=== PATIENT | male | born 1985 | race Caucasian/White ===

== ENCOUNTER 2019-11-24 13:58 | Emergency (ER) | payer SELFPAY ==
--- NOTE | 2019-11-24 14:20 | ER Document Report ---
ED Medical Screen (RME) - General Chief Complaint: Head Injury Stated Complaint: LACERATION TO HEAD Time Seen by Provider: 11/24/19 14:12 Mode of Arrival: Ambulatory Information source: Patient Notes: 34 male presents to ED for complaint of head neck pain. He states he was in the attic helping someone else when he hit his head on the beam in the attic completely knocked himself unconscious for 3 minutes. He states he does not have nausea but he has dizziness tiredness and fatigue. He had his friend bring him to the hospital. He is alert and oriented at this time. We will get him checked out with a CT and have him followed up with another provider. She refused a cervical collar. I have greeted and performed a rapid initial assessment of this patient. A comprehensive ED assessment and evaluation of the patient, analysis of test results and completion of medical decision making process will be conducted by an additional ED providers. - Related Data Allergies/Adverse Reactions: No Known Allergies Allergy (Unverified 11/24/19 14:14) Physical Exam - Vital signs Vitals: Temp Pulse Resp BP Pulse Ox 98.8 F 87 16 128/73 H 97 11/24/19 14:03 11/24/19 14:03 11/24/19 14:03 11/24/19 14:03 11/24/19 14:03 Course - Vital Signs Vital signs: Temp Pulse Resp BP Pulse Ox 98.8 F 87 16 128/73 H 97 11/24/19 14:03 11/24/19 14:03 11/24/19 14:03 11/24/19 14:03 11/24/19 14:03
--- NOTE | 2019-11-24 14:48 | RADIOLOGY REPORT (SQ) ---
EXAM DESCRIPTION: CT HEAD WITHOUT COMPLETED DATE/TIME: 11/24/2019 2:33 pm REASON FOR STUDY: Head injury with loss of consciousness neck pain COMPARISON: None. TECHNIQUE: Axial images acquired through the brain without intravenous contrast. Images reviewed wi th bone, brain and subdural windows. Additional sagittal and coronal reconstructions were generated. Images stored on PACS. All CT scanners at this facility use dose modulation, iterative reconstruction, and/or weight based d osing when appropriate to reduce radiation dose to as low as reasonably achievable (ALARA). [facility]: Dose Right [facility]: CareDose [facility]: Dose Right [facility]: Teradose 4D [facility]: [employer] RADIATION DOSE: CT Rad equipment meets quality standard of care and radiation dose reduction techniq ues were employed. CTDIvol: 53.2 mGy. DLP: 1097 mGy-cm. mGy. LIMITATIONS: None. FINDINGS: VENTRICLES: Normal size and contour. CEREBRUM: No masses. No hemorrhage. No midline shift. No evidence for acute infarction. Normal gra y/white matter differentiation. No areas of low density in the white matter. CEREBELLUM: No masses. No hemorrhage. No alteration of density. No evidence for acute infarction. EXTRAAXIAL SPACES: No fluid collections. No masses. ORBITS AND GLOBE: No intra- or extraconal masses. Normal contour of globe without masses. CALVARIUM: No fracture. PARANASAL SINUSES: No fluid or mucosal thickening. SOFT TISSUES: No mass or hematoma. OTHER: No other significant finding. IMPRESSION: NORMAL BRAIN CT WITHOUT CONTRAST. EVIDENCE OF ACUTE STROKE: NO. COMMENT: Quality ID # [id number]: Final reports with documentation of one or more dose reduction techniques (e.g., Automated exposure control, adjustment of the mA and/or kV according to patient size, use of iterative reconstruction technique) TECHNICAL DOCUMENTATION: JOB ID: [id number] 2010 [employer]- All Rights Reserved Reading location - IP/workstation name: [email or web address]
--- NOTE | 2019-11-24 14:50 | RADIOLOGY REPORT (SQ) ---
EXAM DESCRIPTION: CT CERVICAL SPINE WITHOUT COMPLETED DATE/TIME: 11/24/2019 2:33 pm REASON FOR STUDY: Head injury with loss of consciousness neck pain COMPARISON: None. TECHNIQUE: Axial images acquired through the cervical spine without intravenous contrast. Images re viewed with lung, soft tissue and bone windows. Reconstructed coronal and sagittal MPR images review ed. Images stored on PACS. All CT scanners at this facility use dose modulation, iterative reconstruction, and/or weight based d osing when appropriate to reduce radiation dose to as low as reasonably achievable (ALARA). [facility]: Dose Right [facility]: CareDose [facility]: Dose Right [facility]: Teradose 4D [facility]: [employer] RADIATION DOSE: CT Rad equipment meets quality standard of care and radiation dose reduction techniq ues were employed. CTDIvol: 21.0 mGy. DLP: 461 mGy-cm. mGy. LIMITATIONS: None. FINDINGS: ALIGNMENT: Anatomic. MINERALIZATION: Normal. VERTEBRAL BODIES: No fractures or dislocation. DISCS: No significant disc disease. FACETS, LATERAL MASSES, POSTERIOR ELEMENTS: No fractures. No dislocation. No acute findings. HARDWARE: None in the spine. VISUALIZED RIBS: No fractures. LUNG APICES AND SOFT TISSUES: No significant or acute findings. OTHER: No other significant finding. IMPRESSION: NO ACUTE OR SIGNIFICANT FINDINGS IN THE CERVICAL SPINE. TECHNICAL DOCUMENTATION: JOB ID: [id number] Quality ID # [id number]: Final reports with documentation of one or more dose reduction techniques (e.g., Au tomated exposure control, adjustment of the mA and/or kV according to patient size, use of iterative reconstruction technique) 2010 [email or web address]- All Rights Reserved Reading location - IP/workstation name: [email or web address]
[2019-11-24] MEDS ORDERED: KETOROLAC TROMETHAMINE 60 MG/2 ML SDV IM ONE (15:07)
[2019-11-24] MEDS ORDERED: OXYCODONE HCL IR 5 MG TABLET PO ONE (15:07)
[2019-11-24] MEDS ORDERED: DIPH/PERTUSS(ACELL)/TETANUS VAC/PF 0.5 ML SYR (>=10YO) IM ONE (15:07)
--- NOTE | 2019-11-24 15:18 | ER Document Report ---
ED General - General Chief Complaint: Head Injury with LOC Stated Complaint: LACERATION TO HEAD Time Seen by Provider: 11/24/19 14:12 Primary Care Provider: CRISTÓBAL IBRAHIM MD [COMMUNITY BASED STAFF] - Follow up as needed ESTRELLA ARREDONDO MD [NO LOCAL MD] - Follow up as needed Mode of Arrival: Ambulatory TRAVEL OUTSIDE OF THE [place] IN LAST 30 DAYS: No - HPI Notes: Patient is a 34-year-old male with no significant past medical history presents complaining of head injury with loss of consciousness prior to arrival. Patient states that he was up in his attic when he was walking and hit his head off of a 2 x 4. Patient states that this was a witnessed event and he was unconscious for about 3 minutes. Patient states that he felt dizzy and had a headache thereafter. He is not on any blood thinning medications. He has been ambulatory since then without difficulty otherwise. He is otherwise at baseline his mentation and speech per spouse. Denies any fever, neck pain, changes in vision/speech/mentation/hearing, URI, sore throat, chest pain, palpitations, syncope, cough, shortness of breath, wheeze, dyspnea, abdominal pain, nausea/vomiting/diarrhea, urinary retention, dysuria, hematuria, loss of control of bowel or bladder, numbness/tingling, saddle anesthesia, muscle paralysis/weakness, or rash. - Related Data Allergies/Adverse Reactions: No Known Allergies Allergy (Unverified 11/24/19 14:14) Past Medical History - General Information source: Patient - Social History Smoking Status: Current Every Day Smoker Chew tobacco use (# tins/day): No Drug Abuse: None Family History: Reviewed & Not Pertinent Patient has suicidal ideation: No Patient has homicidal ideation: No Review of Systems - Review of Systems -: Yes All other systems reviewed and negative Physical Exam - Vital signs Vitals: Temp Pulse Resp BP Pulse Ox 98.8 F 87 16 128/73 H 97 11/24/19 14:03 11/24/19 14:03 11/24/19 14:03 11/24/19 14:03 11/24/19 14:03 - Notes Notes: PHYSICAL EXAMINATION: GENERAL: Well-appearing, well-nourished and in no acute distress. A&Ox4. Answers questions appropriately. HEAD: He has an abrasion to the rt frontal/parietal scalp with mild swelling. No bogginess/hematoma. No fry sign EYES: Pupils equal round and reactive to light, extraocular movements intact, sclera anicteric, conjunctiva are normal. No raccoon eyes/entrapment ENT: EAC clear b/l. TM's intact b/l without erythema, fluid, or perforation. Nares patent and without discharge. oropharynx clear without exudates. No tonsilar hypertrophy or erythema. Moist mucous membranes. No sinus tenderness. No hemotympanum/CSF discharge. NECK: Normal range of motion, supple without lymphadenopathy. No rigidity. No midline tenderness. LUNGS: Breath sounds clear to auscultation bilaterally and equal. No wheezes rales or rhonchi. HEART: Regular rate and rhythm without murmurs, rubs, gallops. ABDOMEN: Soft, nontender, nondistended abdomen. No guarding, no rebound. Normal bowel sounds present. No CVA tenderness bilaterally. Musculoskeletal: Ext b/l: FROM to passive/active. Strength 5+/5. No deficits noted. No bony tenderness of extremities. Back: FROM to passive/active. Strength 5+/5, mild weakness to the rt arm vs left. No vertebral point tenderness, stepoffs, or deformities. No other bony tenderness or ecchymosis. Extremities: No cyanosis, clubbing, or edema b/l. Peripheral pulses 2+. Capillary refill less than 2 seconds. NEUROLOGICAL: NIH 0. GCS 15. Cranial nerves grossly intact. Normal speech, normal gait. Normal sensory, motor exams. Reflexes 2+ b/l. ERNESTO's negative. Pronator drift negative. Heel/trevizo, finger/nose wnl. romberg neg. PSYCH: Normal mood, normal affect. SKIN: see above Course - Re-evaluation Re-evalutation: 11/24/19 15:16 Patient is an afebrile, well-hydrated, 34-year-old male who presents to the ED with a closed head injury. Vitals are acceptable without any significant tachycardia, tachypnea, or hypoxia. PE is otherwise unremarkable for any focal neurological deficits, neurovascular compromise, obvious tendon/ligament rupture, obvious fracture/dislocation, septic joint. No labs or imaging warranted at this time based on H&P. NIH 0, GCS 15, cranial nerves grossly intact. CT head/cerv spine negative. Patient is nontoxic-appearing and is tolerating p.o. without any difficulties. Pt given tdap and oxycodone. Pt declined toradol. Low suspicion for any meningitis, fracture, expanding/ruptured AAA, cauda equina syndrome, epidural mass lesion/abscess, herniated disc causing severe spinal stenosis, acute intracranial process, or other systemic infection at this time. Patient is aware that his condition can change from initial presentation and that he needs monitor symptoms closely for any acute changes. Conservative measures otherwise for symptoms. Recheck with your PCM in 3-5 days. Schedule f/u with Neuro. Return to the ED with any worsening/concerning symptoms otherwise as reviewed in discharge. Patient is in agreement. Dr. Holland in agreement with dispo/plan. - Vital Signs Vital signs: Temp Pulse Resp BP Pulse Ox 98.8 F 87 16 128/73 H 97 11/24/19 14:03 11/24/19 14:03 11/24/19 14:03 11/24/19 14:03 11/24/19 14:03 Discharge - Discharge Clinical Impression: Closed head injury Qualifiers: Encounter type: initial encounter Qualified Code(s): S09.90XA - Unspecified injury of head, initial encounter Condition: Stable Disposition: HOME, SELF-CARE Instructions: Headache ([facility]), Head Injury Precautions ([facility]) Additional Instructions: Rest, Ice/cool compress Tylenol/ibuprofen as needed Light stretches daily Strength exercises as able Moist heat and massage may help F/u with your PCP in 2-3 days for a recheck Schedule consult with Neurology for ongoing/worsening symptoms Return to the ED with any worsening symptoms and/or development of fever, headache, changes in pupillary size, drooping of the face, changes in behavior/mentation/vision/speech, chest pain, palpitations, syncope, shortness of breath, trouble breathing, abdominal pain, n/v/d, blood in stool/urine, loss of control of bowel/bladder, urinary retention, muscle weakness/paralysis, saddle anesthesia, numbness/tingling, or other worsening symptoms that are concerning to you. Prescriptions: Ibuprofen [Motrin 800 mg Tablet] 800 mg PO Q8H PRN #15 tab PRN Reason: Metoclopramide HCl [Reglan] 10 mg PO BID PRN #6 tablet PRN Reason: Forms: Elevated Blood Pressure, Smoking Cessation Education Referrals: ESTRELLA ARREDONDO MD [NO LOCAL MD] - Follow up as needed CRISTÓBAL IBRAHIM MD [COMMUNITY BASED STAFF] - Follow up as needed
[2019-11-24 15:38] VITALS: BP 133/79
== END 2019-11-24 15:37 | disposition home or self-care (01) ==
LOC: ER 13:58
DX: S09.90XA Unspecified injury of head, initial encounter (principal); S00.01XA Abrasion of scalp, initial encounter; R42 Dizziness and giddiness; W22.09XA Striking against other stationary object, initial encounter; F17.200 Nicotine dependence, unspecified, uncomplicated; Z23 Encounter for immunization
CPT/HCPCS: 70450; 72125; 99284